=== PATIENT | male | born 2000 | race Caucasian/White ===

== ENCOUNTER 2018-07-19 21:04 | Emergency (ER) | payer OTHER ==
[~2018-07-19] VITALS: Ht 172.7 cm; Wt 176.9 kg
[~2018-07-19 21:04] MED LIST: ACETAMINOPHEN-1 EAC1; ALBUTEROL2.5 MG/31 INH; AMOXICILLIN500 M1 PO; CEPHALEXIN 500500 M3 PO; CIPROFLOXIN HC2.5 M1 OTIC; CYCLOBENZAPRINE5 MG PO; DIABETIC TUSSI118 M3 PO; FLEXERIL PO; IBUPROFEN 800800 M1 PO; IBUPROFEN 800800 MG PO; NEBULIZER MISCELL; TRAMADOL 50 MG50 MG PO; WHEELCHAIR1 EACH MC
[2018-07-19] MEDS ORDERED: MOBIC15 MG (21:14)
[2018-07-19] MEDS ORDERED: TRAZODONE HCL50 MG (21:15)
[2018-07-19] MEDS ORDERED: CYMBALTA20 MG (21:15)
[2018-07-19] MEDS ORDERED: ROBAXIN500 MG PO (21:58)
[2018-07-19] MEDS ORDERED: IBUPROFEN 800800 M1 PO (21:58)
[2018-07-19 22:21] VITALS: BP 148/71
== END 2018-07-19 22:22 | disposition home or self-care (01) ==
LOC: M.ERS 21:04
DX: S00.83XA Contusion of other part of head, initial encounter (principal); M54.2 Cervicalgia; Z90.49 Acquired absence of other specified parts of digestive tract; Z88.8 Allergy status to other drugs, medicaments and biological substances; X58.XXXA Exposure to other specified factors, initial encounter; Y93.89 Activity, other specified; Y92.89 Other specified places as the place of occurrence of the external cause; Y99.8 Other external cause status

== ENCOUNTER 2018-09-03 17:57 | Emergency (ER) | payer OTHER ==
[~2018-09-03] VITALS: Ht 172.7 cm; Wt 190.1 kg
[~2018-09-03 17:57] MED LIST changes: +CYMBALTA20 MG; +MOBIC15 MG; +ROBAXIN500 MG PO; +TRAZODONE HCL50 MG
[2018-09-03] MEDS ORDERED: PRILOSEC 20 MG20 MG PO (18:20)
[2018-09-03 18:40] LABS: ABSOLUTE BASOPHILS 0.1 thou/uL (0.0-0.2); ABSOLUTE EOSINOPHILS 0.2 thou/uL (0.0-0.7); ABSOLUTE LYMPHOCYTES 2.1 thou/uL (0.8-5.3); ABSOLUTE MONOCYTES 0.8 thou/uL (0.0-1.2); ABSOLUTE NEUTROPHILS 10.2 thou/uL (1.6-8.1); EOSINOPHILS 1.2 %; HEMATOCRIT 38.3 % (42.0-52.0); HEMOGLOBIN 12.7 gm/dL (14.0-18.0); LYMPHOCYTES 15.7 %; MCH 24.8 pg (26.0-34.0); MCHC 33.1 g/dL (28.0-37.0); MCV 74.9 fL (80.0-100.0); MONOCYTES 5.9 %; NUCLEATED RBCS 0 /100WBC; PLATELET COUNT* 341 thou/uL (150-400); POLYS 76.2 %; RBC 5.11 mil/uL (4.50-6.00); RDW-CV 14.2 % (10.5-14.5); WBC 13.3 thou/uL (4.0-11.0)
[2018-09-03 18:46] LABS: CALCIUM 9.2 mg/dL (8.5-10.1); CREATININE 0.9 mg/dL (0.6-1.3); POTASSIUM 3.9 mmol/L (3.5-5.1)
[2018-09-03 18:48] LABS: URINE BILIRUBIN NEGATIVE (Negative); URINE BLOOD 1+ (Negative); URINE COLOR YELLOW; URINE GLUCOSE-RANDOM NEGATIVE (Negative); URINE KETONES NEGATIVE (Negative); URINE LEUKOCYTES-REFLEX NEGATIVE (Negative); URINE NITRITE-REFLEX NEGATIVE (Negative); URINE PROTEIN NEGATIVE (Negative); URINE SPECIFIC GRAVITY 1.025 (1.005-1.030); URINE UROBILINOGEN 0.2 E.U./dl (0.2-1.0)
[2018-09-03 18:49] LABS: URINE CLARITY HAZY
[2018-09-03 18:50] LABS: ALBUMIN 3.2 g/dL (3.4-5.0); TOTAL BILIRUBIN 0.2 mg/dL (<0.1-1.0)
[2018-09-03 18:57] LABS: SQUAMOUS 4-10 Moderate /LPF (0-3)
[2018-09-03 18:58] LABS: BACTERIA-REFLEX None Seen /HPF (None Seen); CASTS None Seen /LPF (None Seen); CRYSTALS None Seen /LPF (None Seen); URINE RBC 0-2 Rare /HPF (0-2); URINE WBC-REFLEX 0-5 Rare /HPF (0-5)
[2018-09-03] MEDS ORDERED: BACTRIM DS TAB1 EACH PO (20:28)
[2018-09-03 20:46] VITALS: BP 149/83
== END 2018-09-03 20:46 | disposition home or self-care (01) ==
LOC: M.ERS 17:57
PROVIDERS: Nurse Practitioner Family
DX: N30.90 Cystitis, unspecified without hematuria (principal); F32.9 Major depressive disorder, single episode, unspecified; Z90.49 Acquired absence of other specified parts of digestive tract; Z88.8 Allergy status to other drugs, medicaments and biological substances

== ENCOUNTER 2018-09-13 09:28 | Emergency (ER) | payer OTHER ==
[~2018-09-13] VITALS: Ht 172.7 cm; Wt 181.4 kg
[~2018-09-13 09:28] MED LIST changes: +BACTRIM DS TAB1 EACH PO; +PRILOSEC 20 MG20 MG PO
[2018-09-13 11:20] VITALS: BP 180/90
== END 2018-09-13 11:22 | disposition home or self-care (01) ==
LOC: M.ERS 09:28
DX: M25.562 Pain in left knee (principal); M25.561 Pain in right knee; F17.200 Nicotine dependence, unspecified, uncomplicated; F32.9 Major depressive disorder, single episode, unspecified; Z88.8 Allergy status to other drugs, medicaments and biological substances; Z90.49 Acquired absence of other specified parts of digestive tract